=== PATIENT | male | born 2005 | race Caucasian/White ===

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

== ENCOUNTER → 2023-07-06 | Outpatient (CLI) | payer OTHER | LOC: LAB 13:39 → LAB SHORT 13:39 | DX: J02.9 Acute pharyngitis, unspecified (principal) | CPT/HCPCS: 87081 ==

== ENCOUNTER → 2024-02-27 | Outpatient (CLI) | payer OTHER | LOC: LAB SHORT 18:55 | DX: L02.01 Cutaneous abscess of face (principal) | CPT/HCPCS: 87070; 87075; 87077; 87186; 87205 ==

== ENCOUNTER 2024-10-15 10:45 | Emergency (ER) | payer OTHER ==
[~2024-10-15] VITALS: Ht 185.4 cm; Wt 79.4 kg
[2024-10-15] MEDS ORDERED: HYDROmorphone HCl/Pf 1MG SYR IV ONE (11:05)
[2024-10-15] MEDS ORDERED: Ondansetron HCl 2 MG / ML 2ML Vial IV ONE (11:05)
[2024-10-15] MEDS ORDERED: Propofol 10mg/ml 20 ml Vial (Procedural) IV SCH (11:25)
[2024-10-15] MEDS ORDERED: NS 1,000 ML IV SCH (11:50)
[2024-10-15 12:50] VITALS: BP 130/72
== END 2024-10-15 13:19 | disposition home or self-care (01) ==
LOC: ER 10:45
DX: S43.015A Anterior dislocation of left humerus, initial encounter (principal); V86.56XA Driver of dirt bike or motor/cross bike injured in nontraffic accident, initial encounter
CPT/HCPCS: 23650; 73020; 73030; 96374-59; 96375-59; 99152; 99153; 99283-25; J1171; J2405; J2704; J7030